=== PATIENT | male | born 1995 | race Caucasian/White ===

== ENCOUNTER 2017-06-29 10:22 | Day surgery (SDC) | payer MEDICAID, OTHER ==
[~2017-06-29 10:22] MED LIST: ANCEF/STERILE WATER 2 GM/20 ML IV NR
[2017-06-29] MEDS ORDERED: NACL BACTERIOSTATIC INFILTRATI ONE (11:39)
[2017-06-29] MEDS ORDERED: XYLOCAINE MPF 2% ONE ×2 (11:44→13:14)
[2017-06-29] MEDS ORDERED: DILAUDID ONE (11:44)
[2017-06-29] MEDS ORDERED: DIPRIVAN 10 MG/ML IV ONE ×2 (11:45→12:17)
--- NOTE | 2017-06-29 11:51 | Anesthesia Consultation ---
Anesthesia Consult and Med Hx Date of service: 06/29/17 - Airway Anesthetic Teeth Evaluation: Good ROM Head & Neck: Adequate Mental/Hyoid Distance: Adequate Mallampati Class: Class II Intubation Access Assessment: Good - Pulmonary Exam CTA: Yes - Cardiac Exam Cardiac Exam: RRR - Pre-Operative Health Status ASA Pre-Surgery Classification: ASA2 Proposed Anesthetic Plan: General, Sedation, Conscious - Pulmonary Hx Sleep Apnea: No (HIGH RISK ON SCREENING) - Other Systems Hx Alcohol Use: Yes (RARELY) Hx Cancer: No Hx Obesity: Yes - Additional Comments Anesthesia Medical History Comments: Informed consent obtained
[2017-06-29] MEDS ORDERED: MARCAINE 0.25% INFILTRATI ONE ×2 (11:52→12:47)
[2017-06-29] MEDS ORDERED: XYLOCAINE 1% 20 mL ONE (11:52)
[2017-06-29] MEDS ORDERED: DILAUDID IV PRN (11:52)
--- NOTE | 2017-06-29 11:52 | Anesthesia Day of Surgery ---
Anesthesia Day of Surgery - Day of Surgery Patient Examined: Yes Patient H&P Reviewed: Yes Patient is NPO: Yes
[2017-06-29] MEDS ORDERED: NACL 0.9% 1000 ML 1,000 ML IV SCH (12:00)
[2017-06-29] MEDS ORDERED: SUBLIMAZE ONE (12:09)
[2017-06-29] MEDS ORDERED: VERSED ONE (12:11)
[2017-06-29] MEDS ORDERED: XYLOCAINE 1% 20 mL INFILTRATI ONE (12:47)
[2017-06-29] MEDS ORDERED: ZOFRAN ONE (13:14)
[2017-06-29] MEDS ORDERED: ROBINUL ONE ×2 (13:14)
[2017-06-29] MEDS ORDERED: NEOSTIGMINE ONE (13:14)
[2017-06-29] MEDS ORDERED: NACL 0.9% IR ONE (13:34)
--- NOTE | 2017-06-29 14:05 | Short Stay Summary ---
Short Stay Documentation Date of service: 06/29/17 - History H&P: obtained from office - Allergies and Medications Current Medications: Allergies No Known Allergies Allergy (Verified 06/29/17 11:18) Home Medications Medication Instructions Recorded Confirmed Last Taken Type No Known Home Medications [No 06/29/17 06/29/17 Unknown History Reported Home Medications] Active Medications Cefazolin Sodium (Ancef/Sterile Water 2 Gm/20 Ml) 2 gm IV PREOP NR Stop: 06/29/17 23:59 Hydromorphone HCl (Dilaudid) 0.5 mg IV Q10MIN PRN PRN Reason: Pain , Severe (7-10) Stop: 06/29/17 23:59 Sodium Chloride (Nacl 0.9% 1000 Ml) 1,000 mls @ 100 mls/hr IV DIRECT KESHIA Last Admin: 06/29/17 12:02 Dose: 100 mls/hr Oxycodone/Acetaminophen (Percocet 5/325) 1 tab PO ONCE PRN PRN Reason: Pain, Moderate (4-6) - Brief post op/procedure progress note Date of procedure: 06/29/17 Pre-op diagnosis: Soft tissue mass back >3cm Post-op diagnosis: same Procedure: Excision of Soft tissue mass on back >3cm Anesthesia: GETA, local Surgeon: JACK VARGAS Estimated blood loss: none Pathology: list (Soft tissue mass) Specimen disposition: to lab Condition: stable - Disposition Condition at discharge: Good Disposition: DC- TO HOME OR SELFCARE Short Stay Discharge Plan Activity: no restrictions Diet: regular Wound: remove dressing (07/01/17 and then may shower), drain care as instructed ( Teach CHRYSTAL drain care and to record outputs daily) Follow up with: HEIDY CRUZ MD [Primary Care Provider] - 7 Days JACK VARGAS MD [Staff Physician] - 7 Days Prescriptions: oxyCODONE /ACETAMINOPHEN [Percocet 5/325] 1 - 2 tab PO Q4HR PRN #30 tab PRN Reason: Pain
--- NOTE | 2017-06-29 14:36 | Post Anesthesia Evaluation ---
- Post Anesthesia Evaluation Patient Participated: Yes Airway Patent: Yes Stable Respiratory Function: Yes Nausea/Vomiting: No Temp > 96.8F: Yes Pain Manageable: Yes Adequeate Hydration: Yes Anesthesia Complications: No
[2017-06-29] MEDS: PERCOCET 5/325 PO PRN ×2 (14:43→15:58)
[2017-06-29] MEDS ORDERED: PERCOCET 5/325 PO ONE (15:56)
--- NOTE | 2017-06-29 16:25 | Operative Report ---
PREOPERATIVE DIAGNOSES: Soft tissue mass on back, greater than 3 cm. POSTOPERATIVE DIAGNOSIS: Soft tissue mass on back, greater than 3 cm. PROCEDURE: Excision of soft tissue mass on back, greater than 3 cm. SURGEON: Humphrey Muñoz M.D. ANESTHESIA: General and local. ESTIMATED BLOOD LOSS: Minimal. SPECIMEN: Soft tissue mass measuring approximately 20 x 15 cm x 10 cm. DRAINS: A 19-Turkmen Levi drain. IMPLANTS: None. COMPLICATIONS: None. INDICATIONS: This is a 22-year-old gentleman who has a large soft tissue mass on his upper back at the junction of his neck who presents now for excision of soft tissue mass for diagnostic and therapeutic purposes. DESCRIPTION OF PROCEDURE: The patient was brought to the operating room, identified, and placed in the supine position. General anesthesia was achieved. He was then put in a prone position with care being taken to pad all the appropriate pressure points and protect his joints. The mass was then prepped and draped in the usual manner. We made a vertical incision over the mass using a combination of sharp and cautery dissection. It should be noted that his skin is exceptionally thick at about 1.5 cm in thickness before we got through the dermis. At this point, we got down into the subcutaneous tissues and the fat was very fibrotic and abnormal in appearance. There was no hard distinct mass and there was no encapsulation. We had to dissect the mass over to where there was a subtle transition between this abnormal fibrotic appearing fat and normal adipose tissue. We carried this down to the fascia and totally encompass the mass itself. Once the mass was removed, which was approximately 20 x 15 x 10 cm in size, I did skye it with suture for orientation purposes for pathology. We then irrigated the cavity copiously, removed all the fluid. We had good hemostasis. No signs of any other abnormal fat could be seen. We then placed a 19-Turkmen Levi drain prior to bring in it out through a left lateral puncture wound. This was anchored to the skin with a 2-0 silk suture once we were satisfied with position in the cavity itself, which was quite large. We then closed the deeper layers with interrupted 3-0 Vicryls and because this cavity was so large and I wanted to be sure if need be, I could easily drain a seroma. I placed jasper in the skin. The Levi drain was put to suction and we had good seal. This allowed the tissue ____ demonstrate his normal postoperative appearance, which resulted in a divot appearance due to the size of the mass that was removed. The wound was then dressed. He tolerated the procedure well without complications. JOB# [id number] COLE/WILDA
[2017-06-29 18:45] VITALS: BP 127/72
== END 2017-06-29 16:25 | disposition home or self-care (01) ==
LOC: OR 10:22
PROVIDERS: ATTEND Surgery
DX: M79.9 Soft tissue disorder, unspecified (principal); E66.9 Obesity, unspecified; Z68.38 Body mass index [BMI] 38.0-38.9, adult
CPT/HCPCS: 12036; 21933; 88307; J0690; J1170; J2250; J2405; J2704; J2710; J3010; J7030